=== PATIENT | female | born 1955 | race Caucasian/White ===

== ENCOUNTER → 2016-11-02 | Day surgery (SDC) | payer MEDICARE, OTHER ==
[2016-10-06 12:02] VITALS: BMI 27.3
[~2016-11-02] MED LIST: GLUCAGON 1 MG/ML VIAL ONE; LACTATED RINGERS 1,000 ML IV ONE; LACTATED RINGERS 1,000 ML IV SCH; LIDOCAINE 1% 20 ML VIAL (10MG/ML) FOR IV START INTRADERMA ONE; LIDOCAINE 1% INJ 10MG/ML (20 ML MDV) ONE; PROPOFOL 10 MG/ML 20 ML VIAL IV ONE
[2016-11-02 08:28] VITALS: TEMP 98
--- NOTE | 2016-11-02 10:33 | P.GSHP ---
History of Present Illness H&P Date: 11/02/16 Chief Complaint: Screening colonoscopy This is a 60-year-old female been safe for screening colonoscopy. She denies a significant GI complaints. Her last colonoscopy was 10 years ago. Past Medical History Past Medical History: Cancer, Neurologic Disorder, Pneumonia Additional Past Medical History / Comment(s): MS, hx ovarian cancer 2007 History of Any Multi-Drug Resistant Organisms: None Reported Past Surgical History: Section, Hysterectomy, Orthopedic Surgery Past Anesthesia/Blood Transfusion Reactions: No Reported Reaction Smoking Status: Former smoker - Past Family History Mother Family Medical History: No Reported History Medications and Allergies Home Medications Medication Instructions Recorded Confirmed Type Aspirin [Adult Low Dose Aspirin EC] 81 mg PO DAILY 10/06/16 10/27/16 History Baclofen [Lioresal] 10 mg PO HS PRN 10/06/16 10/27/16 History Cholecalciferol [Vitamin D3] 5,000 unit PO DAILY 10/06/16 10/27/16 History Cyanocobalamin (Vitamin B-12) 1,000 mcg PO DAILY 10/06/16 10/27/16 History [Vitamin B-12] Estrogens, Conjugated [Premarin] 0.5 tab PO DAILY 10/06/16 10/27/16 History Ezetimibe [Zetia] 10 mg PO DAILY 10/06/16 10/27/16 History Omeprazole 20 mg PO Q48H 10/06/16 10/27/16 History Spironolactone [Aldactone] 50 mg PO BID 10/06/16 10/27/16 History Allergies Allergy/AdvReac Type Severity Reaction Status Date / Time No Known Allergies Allergy Verified 10/27/16 11:38 Surgical - Exam Vital Signs Temp Pulse Resp BP Pulse Ox 98.0 F 65 18 134/83 99 11/02/16 08:27 11/02/16 08:27 11/02/16 08:27 11/02/16 08:27 11/02/16 08:27 - General well developed, no distress - Eyes PERRL - ENT normal pinna - Neck no masses - Respiratory normal expansion - Cardiovascular Rhythm: regular - Abdomen Abdomen: soft, non tender Assessment and Plan Plan: We'll perform screening colonoscopy.
--- NOTE | 2016-11-02 10:47 | P.OP ---
Date of Procedure: 11/02/16 Preoperative Diagnosis: Screening colonoscopy Postoperative Diagnosis: Normal colon Procedure(s) Performed: Colonoscopy Implants: Anesthesia: MAC Surgeon: Yann Atkins Pathology: none sent Condition: stable Disposition: PACU Indications for Procedure: Operative Findings: Description of Procedure: PROCEDURE: The patient was placed on the endoscopy table in the lateral position. Digital rectal examination was performed which revealed no abnormalities. s. Flexible colonoscope was then placed in the patient's anus and passed throughout the entire colon. The ileocecal valve was visualized. The cecum, ascending, transverse, descending and sigmoid colon were normal. The rectum was normal as well. There were no masses, polyps or diverticula noted in the entire colon. SUMMARY OF FINDINGS: Normal colonoscopy.
[2016-11-02 11:07] VITALS: BP 125/77; PULSE 61; RESP 18
== END ==
LOC: ORWHC2ENDO 08:05
PROVIDERS: ATTEND Surgery
DX: Z12.11 Encounter for screening for malignant neoplasm of colon (principal); E78.5 Hyperlipidemia, unspecified; G35 Multiple sclerosis; K21.9 Gastro-esophageal reflux disease without esophagitis; Z79.82 Long term (current) use of aspirin; Z79.899 Other long term (current) drug therapy; Z87.891 Personal history of nicotine dependence
CPT/HCPCS: J1610; J2001; J2704; G0121

== ENCOUNTER → 2020-01-14 | Outpatient (CLI) | payer MEDICARE ==
--- NOTE | 2020-01-14 15:46 | XR ---
EXAMINATION TYPE: XR chest 2V DATE OF EXAM: 01/14/2020 COMPARISON: NONE HISTORY: Shortness of breath TECHNIQUE: Frontal and lateral views of the chest are obtained. FINDINGS: Scattered senescent parenchymal changes noted. Hyperinflation compatible with COPD. No evidence for infiltrate. No evidence for atelectasis. Heart size is stable. Mediastinal structures are stable and grossly unremarkable. No evidence for hilar prominence. Degenerative changes dorsal spine. IMPRESSION: 1. No evidence for acute pulmonary disease.
== END | disposition home or self-care (01) ==
LOC: RADXRMAIN 15:17
PROVIDERS: ATTEND Family Medicine
DX: Z01.818 Encounter for other preprocedural examination (principal)
CPT/HCPCS: 71046

== ENCOUNTER 2020-01-20 06:39 | Day surgery (SDC) | payer MEDICARE, OTHER ==
[2020-01-15 10:38] VITALS: BMI 29.2
[~2020-01-20 06:39] MED LIST changes: +ACETAMINOPHEN TAB 500 MG TAB PO ONE; +DEXAMETHASONE SOD PHOSPHATE 10 MG/ML 1 ML VIAL IV ONE; +GABAPENTIN 300 MG CAP PO ONE; -GLUCAGON 1 MG/ML VIAL ONE; +HYDROmorphone 0.5 MG/0.5 ML SYRINGE IVP PRN; -LACTATED RINGERS 1,000 ML IV ONE; -LACTATED RINGERS 1,000 ML IV SCH; +LIDOCAINE 1% (10MG/ML) FOR IV START INTRADERMA PRN; -LIDOCAINE 1% 20 ML VIAL (10MG/ML) FOR IV START INTRADERMA ONE; -LIDOCAINE 1% INJ 10MG/ML (20 ML MDV) ONE; +MELOXICAM 7.5 MG TAB PO ONE; +MIDAZOLAM 2 MG/2 ML VIAL IV PRN; +ONDANSETRON 4 MG/2 ML VIAL IVP ONE; -PROPOFOL 10 MG/ML 20 ML VIAL IV ONE; +ROPIVACAINE 246.25 MG, EPINEPHrine 0.5 MG, KETOROLAC 30 MG, cloNIDine HCL/PF 80 MCG, WA... MISCELLANE ONE; +TRANEXAMIC ACID 1,000 MG in SODIUM CHLORIDE 0.9% 100 ML IVPB ONE; +fentaNYL (PF) 50 MCG/ML 2 ML AMP IV PRN
[2020-01-20] MEDS: LACTATED RINGERS 1,000 ML IV SCH (07:38)
[2020-01-20] MEDS ORDERED: fentaNYL (PF) 50 MCG/ML 2 ML AMP IV ONE (07:49)
[2020-01-20] MEDS ORDERED: TRANEXAMIC ACID 1,000 MG/10 ML VIAL ONE (08:21)
[2020-01-20] MEDS ORDERED: PROPOFOL 10 MG/ML 20 ML VIAL IV ONE (08:21)
[2020-01-20] MEDS ORDERED: SODIUM CHLORIDE 0.9% 100 ML BAG ONE (08:21)
[2020-01-20] MEDS ORDERED: HYDROmorphone (PF) 1 MG/ML ONE (08:21)
[2020-01-20] MEDS ORDERED: fentaNYL (PF) 50 MCG/ML 2 ML AMP ONE (08:21)
[2020-01-20] MEDS ORDERED: NEOSTIGMINE 1 MG/ML 10 ML VIAL ONE (08:21)
[2020-01-20] MEDS ORDERED: LIDOCAINE 1% INJ 10MG/ML (20 ML MDV) ONE (08:21)
[2020-01-20] MEDS ORDERED: ROCURONIUM 10 MG/ML (10 ML VIAL) IV ONE (08:21)
[2020-01-20] MEDS ORDERED: GLYCOPYRROLATE 0.2 MG/ML 2 ML VIAL ONE (08:21)
[2020-01-20] MEDS ORDERED: PHENYLEPHRINE-0.9% NACL SYG 1 MG/10 ML SYRINGE ONE (08:21)
--- NOTE | 2020-01-20 08:23 | P.ANPRN ---
Procedure Note - Anesthesia - Nerve Block Performed Left Adductor Canal Infusion Time Out Performed: Yes ([id number]) Date of Procedure: 01/20/20 Procedure Start Time: 07:50 Procedure Stop Time: 07:59 Location of Patient: PreOp Indication: Acute Post-Operative Pain, Requested by Surgeon Specifically requested for management of pain by DrJordan: Oliver Jimenes Sedation Type: Sedate with meaningful contact maintained Preparation: Sterile Prep Position: Supine Catheter Depth at Skin (cm): 10 Catheter: Indwelling Needle Types: Pajunk Needle Gauge: 21 Ultrasound used to visualize needle placement: Yes Ultrasound used to observe medication spread: Yes Injectate: 0.5% Ropivacaine (see comment for volume) (20cc) Blood Aspirated: No Pain Paresthesia on Injection Noted: No Resistance on Injection: Normal Image Stored and Saved: Yes Events: Uneventful and Well Tolerated
--- NOTE | 2020-01-20 09:44 | P.OP ---
Date of Procedure: 01/20/20 Preoperative Diagnosis: Severe osteoarthritis left knee Postoperative Diagnosis: Severe osteoarthritis left knee Procedure(s) Performed: Left total knee arthroplasty Implants: [employer] Journey II CR Oxinium cruciate retaining femoral component size 4, left [employer] Journey left nonporous tibial baseplate size 3 [employer] Journey II, XLPE Deep Dished articular insert, size 9 mm, Size 3- 4 left [employer] Journey BCS resurfacing oval patellar component, 29 mm All components were cemented using Palacos R bone cement.. The articulation is Oxinium on polyethylene. Anesthesia: GETA Surgeon: Oliver Jimenes Shoe Cleaner #1: Amber Esparza Estimated Blood Loss (ml): 25 Pathology: other (Bone and cartilage) Condition: stable Disposition: PACU Indications for Procedure: After failure of conservative treatment we discussed the surgical and nonsurgical treatment options at length. Patient wishes to proceed with a total knee arthroplasty. Complications specific to this procedure were discussed at length, including but not limited to infection, bleeding, stiffness, and nerve injury. Covid-19 was also discussed at length with the patient, and they are aware of the current policies and procedures. The patient was given the option of delaying surgery, but they elect to proceed knowing these risks. Patient is aware of all these complications and informed consent was obtained Operative Findings: Operative findings are consistent with severe osteoarthritis of the left knee Description of Procedure: Patient was seen in the preoperative area consent was reviewed and operative site was marked with a skin marker. An adductor canal pain catheter was placed by anesthesia in the preoperative area. Patient was then brought to the operating room and given preoperative antibiotics intravenously. A general anesthetic was administered by the anesthesia department. A tourniquet was placed on the upper thigh and the lower extremity was prepped and draped in usual sterile fashion. A gram of transexamic acid was given. A universal timeout was then performed which confirmed the patient's name, surgical site, ALLERGIES, and consent. The lower extremity was then exsanguinated and tourniquet was inflated to 250 mmHg. A standard and anterior midline approach to the knee was performed. The skin and subcutaneous tissue was dissected down to the patellar tendon. A medial parapatellar arthrotomy was then performed. The knee was then extended, the patellar was everted, and the knee was again flexed. The patellar fat pad was removed in order to enhance exposure. Anterior horns of both menisci were excised, and a release was performed to the posterior medial aspect of the knee. On gross visual inspection, there was complete loss of articular cartilage in the medial and patellofemoral joint spaces. There was also significant cartilage damage in the lateral compartment. There were multiple periarticular osteophytes which were then removed with a Ronguer. The femoral canal was then opened with the 9.5 mm intramedullary drill. The 8 mm intramedullary alondra was then inserted into the femoral canal. The distal femoral cutting guide was then placed and set for 5 of valgus. The distal femoral cutting block was then pinned in place. The intramedullary alondra was then removed, and the distal femur was then cut. The cutting block was then removed and the cut was checked for symmetry. Next, the sizing guide was then placed and set for 3 external rotation based off of the epicondylar axis and Whitesides line. Pins were then placed and the drill holes, and the femur was sized with the sizing stylus. The pins were then removed, and the sizing guide was then removed. The spikes of the femoral block was then placed into the predrilled holes, and malleted into place. Two 45 mm pins were then placed into the fixation holes on the cutting block. An justus wing was then used to ensure there would be no notching with the anterior cut. The anterior condyles were cut without notching. The anterior cord cut was then performed, followed by the posterior cut, posterior chamfer cut, and the anterior chamfer cut. The collateral ligaments were protected during the entire process. The cutting block was then removed, and the femoral canal was plugged with autologous bone. Attention was then directed to the tibia. The remaining ACL was removed with a Ronguer, and the tibia was then gently subluxed forward with a large bent knee retractor. Any remaining menisci was excised. The posterior lateral corner was cauterized in order to cauterize the lateral geniculate artery. The extra medullary tibial cutting guide was then placed, set for the appropriate rotation, slope, and depth of resection. The proximal tibia cutting guide was then pinned in place. Proximal tibia was then cut and sized. Next trials were then placed with the appropriate-sized insert. The knee was able to fully extend and flex to 130 and was stable throughout all range of motion. The knee was then extended, patella everted. Patella was then measured, and then using an osteotomy guide, the patella was cut at the appropriate level. The patella was then measured and drilled and the patella trial was then placed. The knee was then taken through range of motion with the patella trial and the patella tracked normally. The knee was then extended patella trial was then removed and the patella was everted. Knee was then flexed and lug holes were drilled through the femoral trial and the femoral trial was then removed. The tibial was then exposed, and the tibial broach guide was then pinned in place after it was set for the appropriate rotation to allow for the most coverage without overhang. The tibia was then reamed and broached. The cut surfaces of bone were then irrigated with pulsatile lavage. The posterior structures were injected with the ropivacaine solution. The knee was also irrigated with Irrisept solution. The components were then opened, the cement was mixed, and the components were then cemented in place. The cement was allowed to harden with the knee in full extension. While the cement was hardening, the remaining soft tissues were then injected with a ropivacaine solution, which consisted of 246.25 mg of ropivacaine, 0.5 mg of epinephrine, 30 mg of Toradol, 80 g of clonidine, and 48.45 mL of sterile water, for a total of 100 mL of fluid injected. After the cemented hardened. The tourniquet was released, and hemostasis was obtained. A second gram of transexamic acid was given. The knee was again irrigated. The knee was again taken through range of motion and found to be stable throughout all range of motion of 0-130, and the patella tracked normally. The fascia was then closed with #2 strata fix suture. The subcutaneous tissue was closed with 3-0 Vicryl and 3-0 strata fix. Dermabond glue was used for the skin and placed with the knee in flexion. The patient was placed in a sterile silver dressing. Patient was then transferred to recovery room in stable condition. The assistant community manager ANTHONY Whyte was required due the complexity surgery and the need for a skilled surgical oncologist. She assisted in positioning, draping, retraction, and closure of the wound.
[2020-01-20] MEDS ORDERED: LACTATED RINGERS 1,000 ML IV ONE (09:47)
[2020-01-20] MEDS ORDERED: NA PHOS,M-B/NA PHOS,DI-BA 133 ML ENEMA RECTAL PRN (10:09)
[2020-01-20] MEDS ORDERED: diazePAM 5 MG TAB PO PRN (10:09)
[2020-01-20] MEDS ORDERED: bisacodyL 10 MG SUPP RECTAL PRN (10:09)
[2020-01-20] MEDS ORDERED: hydrOXYzine pamoate 25 MG CAP PO PRN (10:09)
[2020-01-20] MEDS ORDERED: HYDROmorphone 0.5 MG/0.5 ML SYRINGE IVP PRN ×3 (10:09)
[2020-01-20] MEDS ORDERED: HYDROcodone/APAP 5-325MG 1 EACH TAB PO PRN (10:09)
[2020-01-20] MEDS ORDERED: ONDANSETRON 4 MG/2 ML VIAL IVP PRN (10:09)
[2020-01-20] MEDS ORDERED: NALOXONE 0.4 MG/ML 1 ML VIAL IV PRN (10:09)
[2020-01-20] MEDS ORDERED: MAGNESIUM HYDROXIDE 2,400 MG/10 ML CUP PO PRN (10:09)
[2020-01-20] MEDS ORDERED: ROPIVACAINE 0.2%-NS ON-Q PUMP 1,090 MG, EMPTY PAIN BALL 1 EACH MISCELLANE PRN (10:14)
--- NOTE | 2020-01-20 10:45 | XR ---
EXAMINATION TYPE: XR knee limited LT DATE OF EXAM: 01/20/2020 CLINICAL HISTORY: Postoperative evaluation Two views of the left knee are submitted. Identified are changes of total knee arthroplasty with fem oral and tibial components appearing well seated. Postsurgical soft tissue changes are noted. Align ment is anatomic.
[2020-01-20] MEDS ORDERED: BACLOFEN 10 MG TAB PO PRN (14:53)
[2020-01-20] MEDS ORDERED: PANTOPRAZOLE 40 MG TABLET PO PRN (14:56)
[2020-01-20] MEDS: SODIUM CHLORIDE 0.9% 1,000 ML IV SCH (16:43)
[2020-01-20] MEDS ORDERED: NON FORMULARY DRUG (Acetaminophen/Diphenhydramine [Tylenol Pm 500-25mg] 1 EACH Tablet) PO PRN (18:46)
[2020-01-20] MEDS ORDERED: diphenhydrAMINE 25 MG CAP PO PRN (18:54)
[2020-01-20] MEDS ORDERED: ACETAMINOPHEN TAB 500 MG TAB PO PRN (18:54)
--- NOTE | 2020-01-20 19:32 | P.CONS ---
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 Patient was seen orthopedic and schedule elective left total knee arthroplasty. Surgery was done today successfully with no major complication patient was admitted to the floor afterward she is feeling well with no major hydrodynamic unsalability. Pain is under control. Review of Systems CONSTITUTIONAL: Well-developed no acute respiratory distress. EYES: No icterus sclerae, no conjunctivitis. EARS, NOSE, MOUTH, THROAT, and FACE: No sore throat, lymphadenopathy, carotid bruits or deformity. RESPIRATORY: No SOB cough or wheezes. CARDIOVASCULAR: No CP, Palpitation, PND, Orthopnea, or angina. GASTROINTESTINAL: No Abd pain, Nausea or vomiting, no Diarrhea or constipation, No GI Bleed, no distention or masses. GENITOURINARY: Negative for Hematuria or UTI, no kidney stones. INTEGUMENT/BREAST: Negative for any muscular injury with mild osteoarthritis.. HEMATOLOGIC/LYMPHATIC: Negative for bleed or purpura. MUSCULOSKELTAL: Negative for Myalgia or arthralgia. NEURLOGICAL: No LOC, Sz or syncope, blurred vision dizziness or abnormality..MS with dropping foot in the right side BEHAVIORAL/PSYCH: Negative. ENDOCRINE: Negative. social history: the patient quit smoking 2006 used to smoke a pack a day for 20 years, no eye code abuse no illicit drug use she is retired nurse lives home with her . Family history: her father at 92 from GI bleed, mother at 89 from CVA, patient had 2 b rothers one of them survived with pulmonary fibrosis, patient has 3 children with no major medical problem. Past Medical History Past Medical History: Cancer, GERD/Reflux, Neurologic Disorder, Pneumonia Additional Past Medical History / Comment(s): MS with slight right foot drop-hx of falling from catching this foot when walking., partial neurogenic bladder., ovarian cancer 2007 with chemo/surgery., seasonal allergies, stage 1 sarcoidosis., Anti-inflammatory diet. History of Any Multi-Drug Resistant Organisms: None Reported Past Surgical History: Section, Hysterectomy, Orthopedic Surgery Additional Past Surgical History / Comment(s): arthroscopy left knee, carpal tunnel left wrist Past Anesthesia/Blood Transfusion Reactions: No Reported Reaction Past Psychological History: No Psychological Hx Reported Smoking Status: Former smoker Past Alcohol Use History: Occasional Additional Past Alcohol Use History / Comment(s): quit smoking 2004 , smoked 1/2 ppd, smoked off and on. Past Drug Use History: None Reported - Past Family History Mother Family Medical History: No Reported History Medications and Allergies Home Medications Medication Instructions Recorded Confirmed Type Aspirin [Adult Low Dose Aspirin EC] 81 mg PO HS 10/06/16 01/20/20 History Baclofen [Lioresal] 10 mg PO HS PRN 10/06/16 01/20/20 History Cholecalciferol [Vitamin D3] 5,000 unit PO DAILY 10/06/16 01/20/20 History Cyanocobalamin (Vitamin B-12) 1,000 mcg PO DAILY 10/06/16 01/20/20 History [Vitamin B-12] Ezetimibe [Zetia] 10 mg PO DAILY 10/06/16 01/20/20 History Omeprazole 20 mg PO DAILY PRN 10/06/16 01/20/20 History Acetaminophen/Diphenhydramine 1 tab PO HS PRN 01/15/20 01/20/20 History [Tylenol PM 500-25mg] Fiber Tabs 2 tab PO BID 01/15/20 01/20/20 History Mirabegron [Myrbetriq] 50 mg PO DAILY 01/15/20 01/20/20 History Allergies Allergy/AdvReac Type Severity Reaction Status Date / Time No Known Allergies Allergy Verified 01/20/20 06:56 Physical Exam Vitals: Vital Signs Temp Pulse Pulse Resp BP BP Pulse Ox 01/20/20 16:00 16 01/20/20 15:00 98.1 F 69 124/71 93 L 01/20/20 13:30 61 16 121/71 95 01/20/20 13:00 76 16 133/66 96 01/20/20 12:30 58 L 16 120/57 99 01/20/20 12:05 61 16 111/59 96 01/20/20 11:55 60 16 115/58 97 01/20/20 11:40 68 16 119/59 94 L 01/20/20 11:25 62 16 116/55 98 01/20/20 11:10 67 16 153/67 97 01/20/20 10:54 76 16 165/74 93 L 01/20/20 10:39 65 16 171/81 99 01/20/20 10:24 70 16 171/80 100 01/20/20 10:08 97.2 F L 87 16 181/84 100 01/20/20 08:01 67 16 128/74 98 01/20/20 07:11 97.7 F 73 16 164/76 97 Intake and Output 01/20/20 01/20/20 01/20/20 06:59 14:59 22:59 Intake Total 1640 Output Total 25 Balance 1615 Intake: IV 1500 Intake, IV Titration 140 Amount Sodium Chloride 0.9% 1, 140 000 ml @ 70 mls/hr IV . [id number] [facility] Rx#:[id number] Output: Estimated Blood Loss 25 Other: Weight 71.8 kg General Appearance: Alert, cooperative, no distress, appears stated age. Neck HEENT: Supple, no lymphadenopathy, no thyroid enlargement, no carotid bruits. Lungs: Clear to auscultation without crackles or wheezes no rhonchi, no deformity. Chest Wall: Chest wall normal expansion with deep inspiration no tenderness and no deformity was found on exam, no costochondral pain or discomfort. Heart: Regular rate and rhythm, S1, S2 normal, no murmur, rub or gallop. Back: Symmetric, no curvature, ROM normal, no CVA tenderness. Abdomen: Soft, non-tender, bowel sounds active all four quadrants, no masses, no organomegaly. Extremities: Extremities normal, atraumatic, no cyanosis or edema.incision on the left knee looks fine with no hematoma no induration no bleeding, the right foot had slight dropping only. Pulses: 2+ and symmetric. Skin: Skin color, texture, tugor normal, no rashes or lesions. Neurologic: Alert oriented x3 cranial nerves II through XII intact, no motor deficit, no abnormal balance or gait.slight popping foot and the right side. Assessment and Plan Assessment: 1 post left total knee arthroplasty: Stable surgery harris patient is doing well advance PTOT, continue to watch patient hemodynamic status, continue to watch her pain level. 2 multiple sclerosis: Patient is not on any medication currently she seen a neurologist in [place] Dr. Alejandra and she is doing well so far. 3 hyperlipidemia continue Zetia 10 mg a day patient is doing well with it. 4 severe GERD: Remain on omeprazole 20 mg a day. 5 overactive bladder with most likely neurogenic bladder from MS she is on Myrbetriq 50 mg daily continue medication. 6 DVT prophylaxis: Continue patient on aspirin after surgery. CODE STATUS: Full code. Dr. Jimenes thank you much for the consult psych can be any further help to please let me know.
[2020-01-20] MEDS: ASPIRIN 325 MG TAB PO SCH (20:16)
[2020-01-20] MEDS ORDERED: SENNOSIDES-DOCUSATE SODIUM 1 EACH TAB PO SCH (21:00)
[2020-01-20] MEDS ORDERED: NON FORMULARY DRUG (Aspirin [Adult Low Dose Aspirin Ec] 81 MG Tablet.Dr) PO SCH (21:00)
[2020-01-20 23:11] VITALS: RESP 20
[2020-01-21] MEDS: SODIUM CHLORIDE 0.9% 1,000 ML IV SCH (00:48)
[2020-01-21 01:31] VITALS: TEMP 98.2
[2020-01-21] MEDS: LACTATED RINGERS 1,000 ML IV SCH (04:31)
[2020-01-21] MEDS: HYDROcodone/APAP 5-325MG 1 EACH TAB PO PRN ×2 (06:02→12:50)
[2020-01-21 06:37] LABS: Basophils % (A) 0 %; Eosinophils % (A) 0 %; HCT 33.9 % (34.0-46.0); HGB 11.1 gm/dL (11.4-16.0); Lymphocytes # (A) 1.9 k/uL (1.0-4.8); Lymphocytes % (A) 23 %; MCH 33.5 pg (25.0-35.0); MCHC 32.8 g/dL (31.0-37.0); MCV 102.1 fL (80.0-100.0); Mean Platelet Volume 7.1; Monocytes # (A) 0.4 k/uL (0-1.0); Monocytes % (A) 6 %; Neutrophils # (A) 5.6 k/uL (1.3-7.7); Neutrophils % (A) 70 %; Platelet Count 282 k/uL (150-450); RBC 3.32 m/uL (3.80-5.40); RDW 11.7 % (11.5-15.5); WBC 8.1 k/uL (3.8-10.6)
[2020-01-21 08:01] VITALS: BP 105/55; PULSE 72
[2020-01-21] MEDS: ASPIRIN 325 MG TAB PO SCH (08:39)
[2020-01-21] MEDS ORDERED: CYANOCOBALAMIN 500 MCG TAB PO SCH (09:00)
[2020-01-21] MEDS ORDERED: CHOLECALCIFEROL 1,000 UNIT TAB PO SCH (09:00)
[2020-01-21] MEDS ORDERED: MELOXICAM 7.5 MG TAB PO SCH (09:00)
[2020-01-21] MEDS ORDERED: PATIENT'S OWN (Mirabegron [Myrbetriq] 50 MG Tab.Er.24h) PO SCH (09:00)
[2020-01-21] MEDS ORDERED: EZETIMIBE 10 MG TAB PO SCH (09:00)
--- NOTE | 2020-01-21 10:50 | P.DS ---
Providers Expected date of discharge: 01/21/20 Attending physician: Oliver Jimenes Consults: 01/20/20 10:09 Consult Physician Routine Consulting Provider: Shae Pickard Consult Reason/Comments: medical management Do you want consulting provider notified?: Yes Primary care physician: Shae Pickard - Discharge Diagnosis(es) (1) Osteoarthritis of left knee Current Visit: Yes Status: Acute (2) S/P total knee arthroplasty Current Visit: Yes Status: Acute Hospital Course: This is a 64-year-old female with known history of degenerative arthritis of the left knee. The patient presents for evaluation. After discussion and consideration patient elects to proceed with total knee arthroplasty. The patient is seen preoperatively by Dr. Jimenes and cleared for surgery. Patient is admitted to [facility] on 01/20/2020 for total knee arthroplasty. The procedures performed without complication or sequelae. The patient is doing well postoperatively. Labs and vital signs are stable on day of discharge. On day of discharge patient's knee incision is healing well. There is minimal erythema. There is no drainage noted at this time. There is minimal soft tissue swelling to the hip and thigh. Patient has full foot and ankle motion without difficulty or pain. Neurovascular status to the left lower extremity is intact. Opioid start talking form is discussed and signed. Patient is discharged home in good condition. Please see med rec for accurate list of home medications. Plan - Discharge Summary Discharge Rx Participant: No New Discharge Prescriptions: New Aspirin 325 mg PO BID #60 tab HYDROcodone/APAP 5-325MG [[place] 5-325] 1 - 2 tab PO Q6HR PRN #48 tab PRN Reason: Pain Sennosides [Senokot] 2 tab PO DAILY PRN #60 tablet PRN Reason: Constipation Continue Ezetimibe [Zetia] 10 mg PO DAILY Baclofen [Lioresal] 10 mg PO HS PRN PRN Reason: Muscle Pain Cholecalciferol [Vitamin D3 (25 Mcg = 1000 Iu)] 5,000 unit PO DAILY Omeprazole 20 mg PO DAILY PRN PRN Reason: Heartburn Cyanocobalamin (Vitamin B-12) [Vitamin B-12] 1,000 mcg PO DAILY Mirabegron [Myrbetriq] 50 mg PO DAILY Acetaminophen/Diphenhydramine [Tylenol PM 500-25mg] 1 tab PO HS PRN PRN Reason: Insomnia Fiber Tabs 2 tab PO BID Discontinued Aspirin [Adult Low Dose Aspirin EC] 81 mg PO HS Discharge Medication List Baclofen [Lioresal] 10 mg PO HS PRN 10/06/16 [History] Cholecalciferol [Vitamin D3 (25 Mcg = 1000 Iu)] 5,000 unit PO DAILY 10/06/16 [History] Cyanocobalamin (Vitamin B-12) [Vitamin B-12] 1,000 mcg PO DAILY 10/06/16 [History] Ezetimibe [Zetia] 10 mg PO DAILY 10/06/16 [History] Omeprazole 20 mg PO DAILY PRN 10/06/16 [History] Acetaminophen/Diphenhydramine [Tylenol PM 500-25mg] 1 tab PO HS PRN 01/15/20 [History] Fiber Tabs 2 tab PO BID 01/15/20 [History] Mirabegron [Myrbetriq] 50 mg PO DAILY 01/15/20 [History] Aspirin 325 mg PO BID #60 tab 01/21/20 [Rx] HYDROcodone/APAP 5-325MG [[place] 5-325] 1 - 2 tab PO Q6HR PRN #48 tab 01/21/20 [Rx] Sennosides [Senokot] 2 tab PO DAILY PRN #60 tablet 01/21/20 [Rx] Follow up Appointment(s)/Referral(s): [facility], [NON-STAFF] - As Needed Shae Pickard MD [Primary Care Provider] - 01/23/20 1:30 pm Oliver Jimenes DO [Doctor of Osteopathic Medicine] - 02/04/20 9:25 am Activity/Diet/Wound Care/Special Instructions: Resume aspirin 81 mg daily once completing course of aspirin 325 for DVT prophylaxis Weightbearing as tolerated with walker. Leave dressing intact. Dressing may be removed by home care nurse or by patient 10 days postoperatively. CPM 5-6 hours daily as tolerated. May shower with dressing on. Please take aspirin 325 mg twice daily for 30 days to prevent blood clots. Please wear compression stockings during the day until follow-up appointment to help prevent blood clots. May remove at night. Follow-up with [facility] in 2 weeks, please call with any questions or concerns [phone]. Discharge Disposition: HOME WITH HOME HEALTH SERVICES
--- NOTE | 2020-01-21 11:22 | P.PN ---
Progress Note - Text 01/21/20 714am 64-year-old female status post total knee replacement. Patient seen and evaluated this morning for postop pain control, patient doing very well sitting comfortably with a VAS of 4. Plan to continue On-Q pump infusion
--- NOTE | 2020-01-21 11:59 | P.PN ---
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 Patient was seen orthopedic and schedule elective left total knee arthroplasty. Surgery was done today successfully with no major complication patient was admitted to the floor afterward she is feeling well with no major hydrodynamic unsalability. Pain is under control. 01/20: Patient is working with physical therapy and doing well. She is starting on the stairs. Patient is currently controlled. She has been afebrile, heart rate 72, blood pressure 105/55, pulse ox 95% on room air. WBC 8.1, hemoglobin 11.1, count 282. REVIEW OF SYSTEMS CONSTITUTIONAL: Well-developed no acute respiratory distress. Denies fever. Denies chills. EYES: No icterus sclerae, no conjunctivitis. EARS, NOSE, MOUTH, THROAT, and FACE: No sore throat, lymphadenopathy, carotid bruits or deformity. RESPIRATORY: No SOB cough or wheezes. CARDIOVASCULAR: No CP, Palpitation, PND, Orthopnea, or angina. GASTROINTESTINAL: No Abd pain, Nausea or vomiting, no Diarrhea or constipation, No GI Bleed, no distention or masses. GENITOURINARY: Negative for Hematuria or UTI, no kidney stones. INTEGUMENT/BREAST: Negative for any muscular injury with mild osteoarthritis.. HEMATOLOGIC/LYMPHATIC: Negative for bleed or purpura. MUSCULOSKELTAL: Negative for Myalgia or arthralgia. NEURLOGICAL: No LOC, Sz or syncope, blurred vision dizziness or abnormality..MS with dropping foot in the right side BEHAVIORAL/PSYCH: Negative. ENDOCRINE: Negative. PHYSICAL EXAMINATION General Appearance: Alert, cooperative, no distress, appears stated age. Ambulating within her room. Neck HEENT: Supple, no lymphadenopathy, no thyroid enlargement, no carotid bruits. Lungs: Clear to auscultation without crackles or wheezes no rhonchi, no deformity. Chest Wall: Chest wall normal expansion with deep inspiration no tenderness and no deformity was found on exam, no costochondral pain or discomfort. Heart: Regular rate and rhythm, S1, S2 normal, no murmur, rub or gallop. Back: Symmetric, no curvature, ROM normal, no CVA tenderness. Abdomen: Soft, non-tender, bowel sounds active all four quadrants, no masses, no organomegaly. Extremities: Extremities normal, atraumatic, no cyanosis or edema.incision on the left knee looks fine with no hematoma no induration no bleeding, the right foot had slight dropping only. Pulses: 2+ and symmetric. Skin: Skin color, texture, tugor normal, no rashes or lesions. Neurologic: Alert oriented x3 cranial nerves II through XII intact, no motor deficit, no abnormal balance or gait.slight popping foot and the right side. ASSESSMENT AND PLAN 1 post left total knee arthroplasty: Stable surgery harris patient is doing well advance PTOT, continue to watch patient hemodynamic status, continue current pain management. 2 multiple sclerosis: Patient is not on any medication currently she seen a neurologist in [place] Dr. Alejandra and she is doing well so far. 3 hyperlipidemia continue Zetia 10 mg a day patient is doing well with it. 4 severe GERD: Remain on omeprazole 20 mg a day. 5 overactive bladder with most likely neurogenic bladder from MS she is on Myrbetriq 50 mg daily continue medication. 6 DVT prophylaxis: Continue patient on aspirin after surgery. CODE STATUS: Full code. DISCHARGE PLAN Home with [facility]. Impression and plan of care have been directed as dictated by the signing physician. Ronda Lemus nurse practitioner acting as scribe for signing physician. Objective - Vital Signs Vital signs: Vital Signs Temp 98.2 F 01/21/20 07:00 Pulse 72 01/21/20 07:00 Resp 20 01/21/20 00:35 BP 105/55 01/21/20 07:00 Pulse Ox 95 01/21/20 07:00 Intake & Output 01/20/20 01/21/20 01/21/20 18:59 06:59 18:59 Intake Total 1640 900 Output Total 25 Balance 1615 900 Weight 71.8 kg Intake: IV 1500 Intake, IV Titration 140 Amount Sodium Chloride 0.9% 1, 140 000 ml @ 70 mls/hr IV . [id number] DOUGLAS Rx#:[id number] Oral 900 Output: Estimated Blood Loss 25 Other: # Voids 4 - Labs CBC & Chem 7: 01/21/20 05:51 Labs: Abnormal Lab Results - Last 24 Hours (Table) 01/21/20 Range/Units 05:51 RBC 3.32 L (3.80-5.40) m/uL Hgb 11.1 L (11.4-16.0) gm/dL Hct 33.9 L (34.0-46.0) % MCV 102.1 H (80.0-100.0) fL
== END 2020-01-21 13:22 | disposition home health service (06) ==
LOC: OR 06:39 → 4SSUR 09:55 → OR 01-21 13:22
PROVIDERS: ATTEND Orthopaedic Surgery
DX: M17.12 Unilateral primary osteoarthritis, left knee (principal); I12.9 Hypertensive chronic kidney disease with stage 1 through stage 4 chronic kidney disease, or unspecified chronic kidney disease; N18.2 Chronic kidney disease, stage 2 (mild); G35 Multiple sclerosis; E78.5 Hyperlipidemia, unspecified; K21.9 Gastro-esophageal reflux disease without esophagitis; R73.03 Prediabetes; F42.9 Obsessive-compulsive disorder, unspecified; Z90.710 Acquired absence of both cervix and uterus; Z85.43 Personal history of malignant neoplasm of ovary; Z79.82 Long term (current) use of aspirin; Z79.899 Other long term (current) drug therapy; Z87.891 Personal history of nicotine dependence; Z97.3 Presence of spectacles and contact lenses; Z90.722 Acquired absence of ovaries, bilateral; Z82.49 Family history of ischemic heart disease and other diseases of the circulatory system
CPT/HCPCS: 97110; 97161; 64448; 76942; 85025; 73560; 27447; C1713; C1776; J2250; J0171; J1100; J2710; J0690; J2405; J2001; J3010; J1885; J1170; J2795 ×2; J2370; J2704; J0735

== ENCOUNTER 2024-02-14 07:58 | Emergency (ER) | payer MEDICARE ==
--- NOTE | 2024-02-14 08:50 | ED ---
Neck Injury/Pain HPI - General Chief Complaint: Neck Pain/Injury Stated Complaint: neck pain/swelling Time Seen by Provider: 02/14/24 08:06 Source: patient, RN notes reviewed Mode of arrival: ambulatory Limitations: no limitations - History of Present Illness Initial Comments: 68 year old female presents to the emergency department with chief complaint of right sided neck pain. She states that six months ago she had impacted cerumen removed from right ear and since then she has developed progressively worsening right sided neck pain and swelling. She reports pain with active range of motion, particularly lateral rotation. She denies radiculopathy, paresthesias, hearing loss, headache, vision changes, and fever. She states that she has a history of C3-C7 degenerative changes, which feel much different that her current symptoms. She states that she is able to open mouth and chew without difficulty and she denies drainage from ears and pain with manipulation. - Related Data Home Medications Medication Instructions Recorded Confirmed Baclofen [Lioresal] 10 mg PO HS PRN 10/06/16 01/20/20 Cholecalciferol [Vitamin D3 (25 5,000 unit PO DAILY 10/06/16 01/20/20 Mcg = 1000 Iu)] Cyanocobalamin (Vitamin B-12) 1,000 mcg PO DAILY 10/06/16 01/20/20 [Vitamin B-12] Ezetimibe [Zetia] 10 mg PO DAILY 10/06/16 01/20/20 Omeprazole 20 mg PO DAILY PRN 10/06/16 01/20/20 Acetaminophen/Diphenhydramine 1 tab PO HS PRN 01/15/20 01/20/20 [Tylenol PM 500-25mg] Fiber Tabs 2 tab PO BID 01/15/20 01/20/20 Mirabegron [Myrbetriq] 50 mg PO DAILY 01/15/20 01/20/20 Previous Rx's Medication Instructions Recorded Aspirin 325 mg PO BID #60 tab 01/21/20 HYDROcodone/APAP 5-325MG [Matlock 1 - 2 tab PO Q6HR PRN #48 tab 01/21/20 5-325] Sennosides [Senokot] 2 tab PO DAILY PRN #60 tablet 01/21/20 methocarbamoL [Robaxin] 500 mg PO TID PRN #15 tab 02/14/24 methylPREDNISolone Dose Pack 4 mg PO DIRECTED #1 packet 11/07/24 [Medrol Dose Pack] Allergies Allergy/AdvReac Type Severity Reaction Status Date / Time No Known Allergies Allergy Verified 02/14/24 08:03 Review of Systems ROS Statement: Those systems with pertinent positive or pertinent negative responses have been documented in the HPI. ROS Other: All systems not noted in ROS Statement are negative. Past Medical History Past Medical History: Cancer, Neurologic Disorder, Pneumonia Additional Past Medical History / Comment(s): MS, hx ovarian cancer 2007 History of Any Multi-Drug Resistant Organisms: None Reported Past Surgical History: Section, Hysterectomy, Orthopedic Surgery Past Anesthesia/Blood Transfusion Reactions: No Reported Reaction Smoking Status: Never smoker Past Alcohol Use History: Occasional Past Drug Use History: None Reported - Past Family History Mother Family Medical History: No Reported History General Exam Limitations: no limitations General appearance: alert, in no apparent distress Head exam: Present: atraumatic, normocephalic, normal inspection Eye exam: Present: normal appearance, PERRL, EOMI. Absent: scleral icterus, conjunctival injection, periorbital swelling ENT exam: Present: normal exam, mucous membranes moist Neck exam: Present: tenderness (Right paraspinal), full ROM, lymphadenopathy (Right side, posterior cervical and submandibular), other (Limited range of motion). Absent: meningismus Expanded Neck exam: Present: tenderness Respiratory exam: Present: normal lung sounds bilaterally. Absent: respiratory distress, wheezes, rales, rhonchi, stridor Cardiovascular Exam: Present: regular rate, normal rhythm, normal heart sounds. Absent: systolic murmur, diastolic murmur, rubs, gallop, clicks GI/Abdominal exam: Present: soft, normal bowel sounds. Absent: distended, tenderness, guarding, rebound, rigid Extremities exam: Present: normal inspection, full ROM, normal capillary refill. Absent: tenderness, pedal edema, joint swelling, calf tenderness Back exam: Present: normal inspection Neurological exam: Present: alert, oriented X3, CN II-XII intact Psychiatric exam: Present: normal affect, normal mood Skin exam: Present: warm, dry, intact, normal color. Absent: rash Course Vital Signs 02/14/24 08:00 Temperature 98.2 F Pulse Rate 73 Respiratory 20 Rate Blood Pressure 159/76 O2 Sat by Pulse 99 Oximetry Medical Decision Making - Medical Decision Making Was pt. sent in by a medical professional or institution ([facility], [facility], urgent care, hospital, or [facility]...) When possible be specific @ -No Did you speak to anyone other than the patient for history (EMS, parent, family, police, friend...)? What history was obtained from this source @ -No Did you review nursing and triage notes (agree or disagree)? Why? @ -I reviewed and agree with nursing and triage notes Were old charts reviewed (outside hosp., previous admission, EMS record, old EKG, old radiological studies, urgent care reports/EKG's, [facility] records)? Report findings @ -No old charts were reviewed Differential Diagnosis (chest pain, altered mental status, abdominal pain women, abdominal pain men, vaginal bleeding, weakness, fever, dyspnea, syncope, headache, dizziness, GI bleed, back pain, seizure, CVA, palpatations, mental health, musculoskeletal)? @ -Cervical radiculopathy, cervical muscle spasms, cervical degenerative changes, cervical soft tissue abscess EKG interpreted by me (3pts min.). @ -None X-rays interpreted by me (1pt min.). @ -None done CT interpreted by me (1pt min.). @ -CT soft tissue neck showing severe degenerative changes C5-C6, possible tooth underlying issue, chronic sphenoid sinusitis. U/S interpreted by me (1pt. min.). @ -None done What testing was considered but not performed or refused? (CT, X-rays, U/S, labs)? Why? @ -None What meds were considered but not given or refused? Why? @ -None Did you discuss the management of the patient with other professionals (professionals i.e. ANTHONY Sarkar, [facility]ZZAM[facility]ER, lab, RT, psych nurse, social service assistant, activity specialist, teacher, biological technical officer, sample case porter)? Give summary @ -No Was smoking cessation discussed for >3mins.? @ -No Was critical care preformed (if so, how long)? @ -No Were there social determinants of health that impacted care today? How? (Homelessness, low income, unemployed, alcoholism, drug addiction, transportation, low edu. Level, literacy, decrease access to med. care, long term, rehab)? @ -No Was there de-escalation of care discussed even if they declined (Discuss DNR or withdrawal of care, Hospice)? DNR status @ -No What co-morbidities impacted this encounter? (DM, HTN, Smoking, COPD, CAD, Cancer, CVA, ARF, Chemo, Hep., AIDS, mental health diagnosis, sleep apnea, morbid obesity)? @ -None Was patient admitted / discharged? Hospital course, mention meds given and route, prescriptions, significant lab abnormalities, going to OR and other pertinent info. @ -Discharge patient presented for right-sided neck pain. Patient has reproducible neck pain worse with range of motion. Patient has degenerative changes C5-C6 with moderate changes above. Patient has no focal weakness she was given prescription by her primary physician for physical therapy she is advised to follow-up for this along following up with orthopedic spine. Undiagnosed new problem with uncertain prognosis? @ -No Drug Therapy requiring intensive monitoring for toxicity (Heparin, Nitro, Insulin, Cardizem)? @ -No Were any procedures done? @ -No Diagnosis/symptom? @ -[Cervical muscle spasm, cervical degenerative changes Acute, or Chronic, or Acute on Chronic? @ -Acute Uncomplicated (without systemic symptoms) or Complicated (systemic symptoms)? @ -Uncomplicated Side effects of treatment? @ -No Exacerbation, Progression, or Severe Exacerbation? @ -No Poses a threat to life or bodily function? How? (Chest pain, [place], [place], pneumonia, PE, COPD, DKA, ARF, appy, cholecystitis, CVA, Diverticulitis, Homicidal, Suicidal, threat to staff... and all critical care pts) @ -No Disposition Clinical Impression: Degenerative cervical disc Disposition: HOME SELF-CARE Condition: Stable Instructions (If sedation given, give patient instructions): Acute Neck Pain (ED) Additional Instructions: Please return to the Emergency Department if symptoms worsen or any other concerns. Prescriptions: methylPREDNISolone Dose Pack [Medrol Dose Pack] 4 mg PO DIRECTED #1 packet methocarbamoL [Robaxin] 500 mg PO TID PRN #15 tab PRN Reason: muscle spasms Is patient prescribed a controlled substance at d/c from ED?: No Referrals: Shae Pickard MD [Primary Care Provider] - 1-2 days Time of Disposition: 10:29
--- NOTE | 2024-02-14 09:13 | CT ---
EXAMINATION TYPE: CT soft tissue neck wo con DATE OF EXAM: 02/14/2024 COMPARISON: CLINICAL INDICATION: Female, 68 years old with history of Right sided neck pain, ear pain, cervical p ain; PHH, chroninc, right sided neck pain and right ear pain, pt unable to turn her head TECHNIQUE: CT scan of the neck is performed without contrast.. CT DLP: 196.3 mGycm Automated exposure control for dose reduction was used. FINDINGS: Orbits and intracranial structures are symmetric. Thyroid demonstrates punctate hypodensities which c ould represent tiny subcentimeter thyroid nodules. Atherosclerotic change of the aorta. Mild emphysem atous changes of lungs. Apical pleural thickening with an area of apical calcifications likely in the basis of scarring. Oropharynx and nasopharynx symmetric. Mild changes of chronic sinusitis. Mastoid air cells are clear. There is a ossified density within the right maxillary sinus which could represent an ectopic tooth. Multilevel hypertrophic and degenerative changes spine most marked at C5-6 and C6-C7. Multilevel face t arthropathy and foraminal encroachment suspected. Grade 1 anterolisthesis C4-C5. IMPRESSION: 1. Mild chronic sphenoidal sinusitis. 2. There is a hyperdensity within the posterior margin of the right maxillary sinus which could repre sent an ectopic tooth. 3. Multilevel degenerative disc disease with severe changes at C5-C6 and C6-C7. 4. There is localized lobulation\ectasia of the aortic arch incompletely evaluated. Consider short-te follow-up CT chest. [facility], , 02/14/2024 9:11 AM
[2024-02-14 10:52] VITALS: BP 92/60; PULSE 64; RESP 18; TEMP 97.8
== END 2024-02-14 10:52 | disposition home or self-care (01) ==
LOC: EC 07:58
DX: M50.322 Other cervical disc degeneration at C5-C6 level (principal); J32.3 Chronic sphenoidal sinusitis
CPT/HCPCS: 70490; 99283